=== PATIENT | female | born 1970 | race Caucasian/White ===

== ENCOUNTER 2017-02-11 08:19 | Day surgery (SDC) | payer OTHER ==
[~2017-02-11] VITALS: Ht 182.9 cm; Wt 93.6 kg
[2017-02-11] MEDS ORDERED: LIDOCAINE 2% (SDV) 5 ML INJ ONE (09:45)
[2017-02-11] MEDS ORDERED: PROPOFOL 40 ML ONE (09:45)
[2017-02-11] MEDS ORDERED: LEVOTHYROXINE (09:52)
[2017-02-11] MEDS ORDERED: UNISOM (09:53)
[2017-02-11] MEDS ORDERED: VIT (09:53)
[2017-02-11 10:01] VITALS: BP 123/87; PULSE 65; RESP 23
--- NOTE | 2017-02-11 10:22 | OPPN ---
Date/Time of Note Date/Time of Note DATE: 02/11/17 TIME: 10:21 Operative Report Preoperative Diagnosis Left lower quadrant abdominal pain Change in bowel habit Postoperative Diagnosis Internal hemorrhoids No neoplasm was identified Operation/Procedure Performed Colonoscopy Surgeon see signature line nursing home assistant administrator None Anesthesia: MAC Estimated blood loss: none Transfusion Required none Specimen None Grafts/Implants none Complications none NAVNEET MADERA MD Feb 11, 2017 10:22
[2017-02-11 10:49] VITALS: BP 124/78; PULSE 65; RESP 12
[2017-02-11 10:57] VITALS: BP 140/87; PULSE 63; RESP 16
--- NOTE | 2017-02-11 12:57 | GILP ---
DATE OF PROCEDURE: NAME OF PROCEDURE: Colonoscopy. SURGEON: Navneet Okeefe MD. PREOPERATIVE DIAGNOSES: 1. Change in bowel habit. 2. Left lower quadrant abdominal pain. POSTOPERATIVE DIAGNOSES: 1. Colonoscopy all the way to the cecum. 2. Internal hemorrhoids. 3. No diverticulosis or neoplasm was identified. INDICATION FOR THE PROCEDURE: Ms. Tennille Vale is a 46-year-old female patient who had left lower quadrant abdominal pain associated with change in bowel habit. The patient was scheduled for colon oscopy for further evaluation. The procedure and possible complications were well explained to the patient. The patient understood and consented to the procedure. DESCRIPTION OF PROCEDURE: Under the influence of anesthesia, the colonoscope was carefully introduc ed in the rectum and under direct vision, it was advanced all the way to the cecum. FINDINGS: The patient had internal hemorrhoids. No colitis, neoplasm or diverticulosis was identif ied. She tolerated the procedure very well and there was no complication from the procedure. At the end of the procedure, she was awake with stable vital signs and she was discharged home to the care of h er family. IMPRESSION: Please see postoperative diagnosis. PLAN: Bentyl 10 mg p.o. t.i.d. p.r.n. for pain. Dictated By: NANVEET PEREZ/DIPTI Conf#: [id number] DID#: [id number]
== END 2017-02-11 13:45 | disposition home or self-care (01) ==
LOC: GIL 08:19
PROVIDERS: ATTEND Internal Medicine Gastroenterology
DX: R19.4 Change in bowel habit (principal); K64.8 Other hemorrhoids; E03.9 Hypothyroidism, unspecified; E66.9 Obesity, unspecified; Z68.28 Body mass index [BMI] 28.0-28.9, adult
CPT/HCPCS: 45378; 84703; Z7610